=== PATIENT | female | born 1980 | race African-American/Black ===

== ENCOUNTER 2022-07-15 21:17 | Emergency (ER) | payer MEDICAID ==
[~2022-07-15] VITALS: Ht 160 cm; Wt 95.7 kg
[2022-07-15] MEDS ORDERED: CYCLOBENZAPRINE 10MG TABLET PO ONE (22:45)
[2022-07-15] MEDS ORDERED: KETOROLAC 30MG/ML VIAL IM ONE (22:45)
[2022-07-15] MEDS ORDERED: CYCL10TA21 MT (22:57)
[2022-07-15] MEDS ORDERED: NAPR-1176 MT (22:57)
[2022-07-15 23:06] VITALS: BP 125/64
== END 2022-07-15 23:25 | disposition home or self-care (01) ==
LOC: ER 21:17
DX: S16.1XXA Strain of muscle, fascia and tendon at neck level, initial encounter (principal); S20.222A Contusion of left back wall of thorax, initial encounter; J45.909 Unspecified asthma, uncomplicated; Z98.890 Other specified postprocedural states; Z88.1 Allergy status to other antibiotic agents; V43.52XA Car driver injured in collision with other type car in traffic accident, initial encounter; Y93.89 Activity, other specified; Y92.488 Other paved roadways as the place of occurrence of the external cause
CPT/HCPCS: 71045; 81025; 96372; 99283; J1885